=== PATIENT | male | born 1990 ===

== ENCOUNTER 2018-02-23 09:30 | Day surgery (SDC) | payer OTHER ==
[~2018-02-23] VITALS: Ht 177.8 cm; Wt 86.0 kg
[2018-02-23] VITALS (14 sets, daily range): BP systolic 120–130; BP diastolic 61–81
[~2018-02-23 09:30] MED LIST: ACET-2119 PO; LEVA15HF4 INH; MOME13HF IH; albuterol 2.5 MG/3 ML nebule NEB ONE; ceFAZolin inj. 2,000 MG in dextrose 5%-water 100 ML IV ONE; famotidine 20mg tablet PO ONE; ringers solution, lacted 1,000 ML IV SCH
[2018-02-23] MEDS ORDERED: BUPIVAcaine/PF 7.5mg/ml (0.75%) 10ml vial ONE ×2 (10:02→10:03)
[2018-02-23] MEDS ORDERED: ceFAZolin 1000mg inj ONE (10:02)
[2018-02-23] MEDS ORDERED: bacitracin 15gm ointment TP ONE (10:11)
[2018-02-23] MEDS ORDERED: sevoflurane 250ml liquid IH ONE (12:55)
[2018-02-23] MEDS ORDERED: ROPIVAcaine 0.5% (5mg/ml) 30ml vial ONE (12:55)
[2018-02-23] MEDS ORDERED: MIDAZolam 5mg/5ml vial ONE (13:00)
[2018-02-23] MEDS ORDERED: fentaNYL/PF 50MCG/1 ML 2ML syringe ONE ×2 (13:00→13:27)
[2018-02-23] MEDS ORDERED: LIDOcaine 1%/PF 5ML 10 MG/ML VIAL ONE (13:26)
[2018-02-23] MEDS ORDERED: glycopyrrolate 0.2mg/ml inj ONE (13:26)
[2018-02-23] MEDS ORDERED: atropine 0.4 mg/ml 20ml vial ONE (13:26)
[2018-02-23] MEDS ORDERED: dexamethasone sod phosphate 4mg/ml inj. ONE (13:26)
[2018-02-23] MEDS ORDERED: propofol inj 20 ML IV ONE (13:26)
[2018-02-23] MEDS ORDERED: albuterol 60 PUFF/8GM Inhaler IH ONE (14:01)
[2018-02-23] MEDS ORDERED: ondansetron/PF 4mg/2ml inj IV PRN (14:05)
[2018-02-23] MEDS ORDERED: proCHLORperazine 10 MG/2 ml inj IV PRN (14:05)
[2018-02-23] MEDS ORDERED: meperidine/PF 25mg/ml syringe IV PRN ×2 (14:05)
[2018-02-23] MEDS ORDERED: ringers solution, lacted 1,000 ML IV SCH (14:05)
[2018-02-23] MEDS ORDERED: morphine 4 MG/ML inj SYRINge IV PRN ×2 (14:05)
[2018-02-23] MEDS ORDERED: ondansetron/PF 4mg/2ml inj ONE (14:16)
[2018-02-23] MEDS: meperidine/PF 25mg/ml syringe IV PRN ×2 (15:23→16:08)
[2018-02-23] MEDS ORDERED: HYDROcodone/acetaminophen 5mg/325mg tablet PO ONE (16:55)
== END 2018-02-23 17:12 ==
LOC: PAS 09:30
PROVIDERS: ATTEND Orthopaedic Surgery
DX: M93.1 Kienbock's disease of adults (principal); G89.18 Other acute postprocedural pain; J45.998 Other asthma; B19.20 Unspecified viral hepatitis C without hepatic coma; Z87.891 Personal history of nicotine dependence; Z79.891 Long term (current) use of opiate analgesic; Z98.890 Other specified postprocedural states; Z79.899 Other long term (current) drug therapy
CPT/HCPCS: 25390; 64417; A6449; C1713; J0461; J0690; J1100; J2001; J2175; J2250; J2405; J2704; J2795; J3010; J3490; J7060; J7120; 25800; A7000